=== PATIENT | male | born 2000 | race Caucasian/White ===

== ENCOUNTER 2018-04-14 13:26 | Emergency (ER) | payer BC ==
[~2018-04-14] VITALS: Ht 610.5 cm; Wt 70.5 kg
[2018-04-14 14:07] LABS: BASOPHILS % (AUTO) 0.5 % (0-1); EOSINOPHILS # (AUTO) 0.1 X10'3 (0-0.9); EOSINOPHILS % (AUTO) 2.4 % (0-6); HEMATOCRIT 38.9 % (42.0-52.0); HEMOGLOBIN 13.3 g/dl (14.0-17.9); LYMPHOCYTES # (AUTO) 2.5 X10'3 (1.1-4.8); LYMPHOCYTES % (AUTO) 40.7 % (21-51); MEAN CORPUSCULAR HEMOGLOBIN 31.2 PG (27.0-31.0); MEAN CORPUSCULAR HGB CONC 34.3 % (33.0-36.5); MEAN CORPUSCULAR VOLUME 91.2 FL (78-98); MONOCYTES # (AUTO) 0.5 X10'3 (0-0.9); MONOCYTES % (AUTO) 7.6 % (2-12); NEUTROPHILS % (AUTO) 48.8 % (42-75); PLATELET COUNT 172 X10'3 (140-440); RED BLOOD COUNT 4.27 X10'6 (4.70-6.10); RED CELL DISTRIBUTION WIDTH 12.9 % (11.5-14.5); WHITE BLOOD COUNT 6.1 X10'3 (4.5-11.0)
[2018-04-14 14:29] LABS: CLARITY,URINE CLEAR (Clear); COLOR,URINE YELLOW (Yellow); GLUCOSE, URINE NEGATIVE (Neg); KETONES,URINE NEGATIVE (Neg); LEUKOCYTE ESTERASE ,URINE NEGATIVE (Neg); NITRITES, URINE NEGATIVE (Neg); OCCULT BLOOD,URINE NEGATIVE (Neg); PROTEIN,URINE NEGATIVE (Neg); UROBILINOGEN,URINE 0.2 E.U/dL (0.2-1.0)
[2018-04-14 14:33] LABS: ETHANOL < 0.010 GM/DL (0.0-0.010)
[2018-04-14 14:35] LABS: UA COLLECTION TYPE CLN CATCH MIDSTREAM
[2018-04-14 14:40] LABS: URINE AMPHETAMINE SCREEN NEGATIVE (Neg); URINE BARBITUATE SCREEN NEGATIVE (Neg); URINE BENZODIAZEPINES SCREEN NEGATIVE (Neg); URINE CANNABINOID SCREEN NEGATIVE (Neg); URINE COCAINE SCREEN NEGATIVE (Neg); URINE METHADONE SCREEN NEGATIVE (Neg); URINE OPIATE SCREEN POSITIVE (Neg); URINE PHENCYCLIDINE SCREEN NEGATIVE (Neg)
[2018-04-14 15:44] LABS: ALANINE AMINOTRANSFERASE 35 U/L (12-78); ALBUMIN 4.4 G/DL (3.4-5.0); ALBUMIN/GLOBULIN RATIO 1.3 (1.1-1.5); ALKALINE PHOSPHATASE 68 IU/L (20-180); ANION GAP 11 (8-16); ASPARTATE AMINO TRANSFERASE 18 U/L (10-37); BILIRUBIN,TOTAL 1.5 MG/DL (0.1-1.0); BLOOD UREA NITROGEN 12 MG/DL (7-18); BUN/CREATININE RATIO 12.4 (5.4-32.0); CALCIUM 8.9 MG/DL (8.5-10.1); CHLORIDE 103 MMOL/L (99-107); CREATININE 0.97 MG/DL (0.60-1.10); GLUCOSE 95 MG/DL (70-104); POTASSIUM 3.6 MMOL/L (3.5-5.1); SODIUM 143 MMOL/L (135-145); TOTAL CARBON DIOXIDE 29.3 MMOL/L (24-32); TOTAL PROTEIN 7.9 G/DL (6.4-8.2); eGFR > 90 ML/MIN
[2018-04-14] MEDS ORDERED: LORazepam 1 MG tablet PO STA (20:10)
[2018-04-14 20:32] VITALS: BP 103/69
[2018-04-14] MEDS ORDERED: NO HOME MEDS (23:38)
[2018-04-14] MEDS ORDERED: RISP1TAB13 PO (23:53)
[2018-04-14] MEDS ORDERED: HYDR50CA PO (23:53)
== END 2018-04-14 20:36 ==
LOC: ER 13:27
DX: R45.851 Suicidal ideations (principal); F41.9 Anxiety disorder, unspecified; F32.9 Major depressive disorder, single episode, unspecified
CPT/HCPCS: 36415; 80053; 80305; 80320; 81003; 84443; 85025; 99285

== ENCOUNTER 2018-04-14 17:00 | Inpatient (IN) | payer BC ==
[~2018-04-14] VITALS: Ht 182.9 cm; Wt 72.8 kg
[2018-04-14] MEDS ORDERED: acetaminophen 325mg tablet PO PRN (20:40)
[2018-04-14] MEDS: risperiDONE 2mg tablet PO SCH (22:27)
[2018-04-14] MEDS: hydrOXYzine 25 MG tablet PO PRN (22:27)
[2018-04-14 22:32] VITALS: BP 128/83
[2018-04-14] MEDS ORDERED: NO HOME MEDS (23:38)
[2018-04-14] MEDS ORDERED: HYDR50CA PO (23:53)
[2018-04-14] MEDS ORDERED: RISP1TAB13 PO (23:53)
[2018-04-15 07:54] LABS: CHOL/HDL RATIO 2.4 (0.00-4.99); CHOLESTEROL 145 MG/DL (0-200); HDL CHOLESTEROL 61 MG/DL (35-60); LDL CHOLESTEROL 83 MG/DL (50-100); TRIGLYCERIDES 39 MG/DL (20-135)
[2018-04-15 07:56] LABS: HEMOGLOBIN A1C 5.2 % (4.5-6.2)
[2018-04-15 07:58] VITALS: BP 103/69
[2018-04-15 20:47] VITALS: BP 111/64
[2018-04-15] MEDS: risperiDONE 2mg tablet PO SCH (21:16)
[2018-04-16 08:28] VITALS: BP 108/66
[2018-04-16 20:00] VITALS: BP 106/73
[2018-04-16] MEDS: risperiDONE 2mg tablet PO SCH (21:14)
[2018-04-17 08:00] VITALS: BP 113/68
[2018-04-17] MEDS ORDERED: risperiDONE 0.5mg tablet PO SCH (08:00)
[2018-04-17 19:00] VITALS: BP 104/58
[2018-04-17] MEDS: risperiDONE 0.5mg tablet PO SCH (20:44)
[2018-04-18 08:00] VITALS: BP 95/56
[2018-04-18 19:00] VITALS: BP 102/61
[2018-04-18] MEDS: risperiDONE 0.5mg tablet PO SCH (21:36)
[2018-04-19 08:00] VITALS: BP 95/53
[2018-04-19 19:50] VITALS: BP 105/59
[2018-04-19] MEDS: risperiDONE 0.5mg tablet PO SCH (20:20)
[2018-04-19] MEDS: hydrOXYzine 25 MG tablet PO PRN (20:21)
[2018-04-20 11:11] LABS: HIV ANTIBODY 1&2 RAPID NON-REACTIVE (Neg)
[2018-04-20 20:00] VITALS: BP 109/72
[2018-04-20] MEDS: risperiDONE 0.5mg tablet PO SCH (21:21)
[2018-04-21 08:00] VITALS: BP 106/61
[2018-04-21 09:18] LABS: VITAMIN D, 25-HYDROXY 42.6 ng/mL (30.0-100.0)
[2018-04-21 20:00] VITALS: BP 109/63
[2018-04-21] MEDS: risperiDONE 0.5mg tablet PO SCH (21:26)
[2018-04-22 08:00] VITALS: BP 100/62
[2018-04-22] MEDS ORDERED: HYDR-3686 PO (17:02)
[2018-04-22] MEDS ORDERED: RISP0.5T3 PO (17:02)
[2018-04-22] MEDS: hydrOXYzine 25 MG tablet PO PRN (20:06)
[2018-04-22] MEDS: risperiDONE 0.5mg tablet PO SCH (20:06)
[2018-04-22 20:58] VITALS: BP 104/56
[2018-04-22 20:59] VITALS: BP 110/65
== END 2018-04-22 20:15 | disposition home or self-care (01) | DRG 885 ==
LOC: ADULT MH 17:00
PROVIDERS: ADMIT Psychiatry & Neurology Psychiatry; ATTEND Psychiatry & Neurology Psychiatry
DX: F29 Unspecified psychosis not due to a substance or known physiological condition (principal); T14.91XA Suicide attempt, initial encounter; F41.9 Anxiety disorder, unspecified; F02.80 Dementia in other diseases classified elsewhere, unspecified severity, without behavioral disturbance, psychotic disturbance, mood disturbance, and anxiety; Z82.0 Family history of epilepsy and other diseases of the nervous system; Z81.8 Family history of other mental and behavioral disorders
CPT/HCPCS: 36415; 80061; 82306; 82607; 82746; 83036; 83921; 86592; 86618; 86703; 87070; 99285; Q0177

== ENCOUNTER 2019-03-18 11:46 | Emergency (ER) | payer BC ==
[~2019-03-18] VITALS: Ht 180.3 cm; Wt 65.0 kg
[~2019-03-18 11:46] MED LIST: HYDR-3686 PO; RISP0.5T3 PO
[2019-03-18 13:26] LABS: BASOPHILS # (AUTO) 0.1 X10'3 (0-0.2); BASOPHILS % (AUTO) 0.7 % (0-1); EOSINOPHILS % (AUTO) 0.5 % (0-6); HEMATOCRIT 44.9 % (42.0-52.0); HEMOGLOBIN 15.7 g/dl (14.0-17.9); LYMPHOCYTES # (AUTO) 1.5 X10'3 (1.1-4.8); LYMPHOCYTES % (AUTO) 19.9 % (21-51); MEAN CORPUSCULAR HEMOGLOBIN 30.3 PG (27.0-31.0); MEAN CORPUSCULAR HGB CONC 34.9 g/dL (33.0-36.5); MEAN CORPUSCULAR VOLUME 86.8 FL (78-98); MEAN PLATELET VOLUME 8.6 FL (7.4-10.4); MONOCYTES # (AUTO) 0.5 X10'3 (0-0.9); MONOCYTES % (AUTO) 6.4 % (2-12); NEUTROPHILS # (AUTO) 5.5 X10'3 (1.8-7.7); NEUTROPHILS % (AUTO) 72.5 % (42-75); PLATELET COUNT 231 X10'3 (140-440); RED BLOOD COUNT 5.17 X10'6 (4.70-6.10); RED CELL DISTRIBUTION WIDTH 13.5 % (11.5-14.5); WHITE BLOOD COUNT 7.5 X10'3 (4.5-11.0)
[2019-03-18 13:40] LABS: ALANINE AMINOTRANSFERASE 18 U/L (12-78); ALBUMIN 4.5 G/DL (3.4-5.0); ALBUMIN/GLOBULIN RATIO 1.3 (1.1-1.5); ALKALINE PHOSPHATASE 98 IU/L (46-116); ANION GAP 7 (8-16); ASPARTATE AMINO TRANSFERASE 14 U/L (10-37); BILIRUBIN,TOTAL 2.5 MG/DL (0.1-1.0); BLOOD UREA NITROGEN 10 MG/DL (7-18); BUN/CREATININE RATIO 8.8 (5.4-32.0); CALCIUM 9.1 MG/DL (8.5-10.1); CHLORIDE 105 MMOL/L (99-107); CREATININE 1.14 MG/DL (0.60-1.10); GLUCOSE 94 MG/DL (70-104); POTASSIUM 3.9 MMOL/L (3.5-5.1); SODIUM 141 MMOL/L (135-145); TOTAL CARBON DIOXIDE 28.8 MMOL/L (24-32); eGFR 81 ML/MIN
[2019-03-18 13:51] LABS: ETHANOL < 0.010 GM/DL (0.0-0.010)
[2019-03-18 13:59] LABS: CLARITY,URINE CLEAR (Clear); COLOR,URINE YELLOW (Yellow); GLUCOSE, URINE NEGATIVE (Neg); KETONES,URINE NEGATIVE (Neg); LEUKOCYTE ESTERASE ,URINE NEGATIVE (Neg); NITRITES, URINE NEGATIVE (Neg); OCCULT BLOOD,URINE NEGATIVE (Neg); PROTEIN,URINE 30 mg/dl (Neg)
[2019-03-18 14:02] LABS: URINE AMPHETAMINE SCREEN NEGATIVE (Neg); URINE BARBITUATE SCREEN NEGATIVE (Neg); URINE BENZODIAZEPINES SCREEN NEGATIVE (Neg); URINE CANNABINOID SCREEN NEGATIVE (Neg); URINE COCAINE SCREEN NEGATIVE (Neg); URINE METHADONE SCREEN NEGATIVE (Neg); URINE OPIATE SCREEN NEGATIVE (Neg); URINE PHENCYCLIDINE SCREEN NEGATIVE (Neg)
[2019-03-18 14:06] LABS: UA COLLECTION TYPE CLN CATCH MIDSTREAM
[2019-03-18 14:25] LABS: MUCUS STRANDS MANY /LPF (Neg)
[2019-03-18 14:27] LABS: BACTERIA,URINE FEW /HPF (Neg); RBC,URINE NONE SEEN /HPF (0-2); SQUAMOUS EPITHELIAL CELL,UR NONE SEEN /LPF (FEW); WBC,URINE 0-4 /HPF (0-4)
[2019-03-18 14:32] LABS: URIC ACID CRYSTALS FEW /HPF (NEGATIVE)
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
[2019-03-18 15:48] VITALS: BP 130/80
== END 2019-03-18 15:50 | disposition home or self-care (01) ==
LOC: ER 11:46
DX: F99 Mental disorder, not otherwise specified (principal); F60.2 Antisocial personality disorder; Z79.899 Other long term (current) drug therapy
CPT/HCPCS: 36415; 80053; 80305; 80320; 81001; 84443; 85025; 99283; 99284

== ENCOUNTER 2021-10-21 00:35 | Emergency (ER) | payer BC, MEDICAID ==
[~2021-10-21] VITALS: Ht 182.9 cm; Wt 113.6 kg
[~2021-10-21 00:35] MED LIST changes: -RISP0.5T3 PO; +RISP0.5T65 PO
[2021-10-21] MEDS ORDERED: LORazepam 1 MG tablet PO ONE (02:05)
[2021-10-21] MEDS ORDERED: LORazepam 1 MG tablet PO STA (02:15)
[2021-10-21] MEDS ORDERED: OLANZAPINE 5 MG TABLET PO STA (02:15)
[2021-10-21 02:16] LABS: BASOPHILS % (AUTO) 0.3 % (0-1); EOSINOPHILS # (AUTO) 0.1 X10'3 (0-0.9); EOSINOPHILS % (AUTO) 0.5 % (0-6); HEMATOCRIT 45.8 % (42.0-52.0); HEMOGLOBIN 15.8 g/dl (14.0-17.9); LYMPHOCYTES # (AUTO) 2.3 X10'3 (1.1-4.8); LYMPHOCYTES % (AUTO) 12.4 % (21-51); MEAN CORPUSCULAR HEMOGLOBIN 29.7 PG (27.0-31.0); MEAN CORPUSCULAR HGB CONC 34.6 g/dL (33.0-36.5); MEAN CORPUSCULAR VOLUME 85.9 FL (78-98); MEAN PLATELET VOLUME 8.7 FL (7.4-10.4); MONOCYTES # (AUTO) 1.2 X10'3 (0-0.9); MONOCYTES % (AUTO) 6.8 % (2-12); NEUTROPHILS # (AUTO) 14.7 X10'3 (1.8-7.7); PLATELET COUNT 279 X10'3 (140-440); RED BLOOD COUNT 5.33 X10'6 (4.70-6.10); RED CELL DISTRIBUTION WIDTH 12.9 % (11.5-14.5); WHITE BLOOD COUNT 18.4 X10'3 (4.5-11.0)
[2021-10-21 02:16] LABS: URINE AMPHETAMINE SCREEN NEGATIVE (Neg); URINE BARBITUATE SCREEN NEGATIVE (Neg); URINE BENZODIAZEPINES SCREEN NEGATIVE (Neg); URINE CANNABINOID SCREEN NEGATIVE (Neg); URINE COCAINE SCREEN NEGATIVE (Neg); URINE METHADONE SCREEN NEGATIVE (Neg); URINE OPIATE SCREEN NEGATIVE (Neg); URINE PHENCYCLIDINE SCREEN NEGATIVE (Neg)
[2021-10-21 02:17] LABS: ALANINE AMINOTRANSFERASE 28 U/L (12-78); ALBUMIN 4.5 G/DL (3.4-5.0); ALBUMIN/GLOBULIN RATIO 1.1 (1.1-1.5); ALKALINE PHOSPHATASE 88 IU/L (46-116); ANION GAP 7 (8-16); ASPARTATE AMINO TRANSFERASE 23 U/L (10-37); BILIRUBIN,TOTAL 0.6 MG/DL (0.1-1.0); BLOOD UREA NITROGEN 11 MG/DL (7-18); BUN/CREATININE RATIO 10.3 (5.4-32.0); CALCIUM 9.1 MG/DL (8.5-10.1); CHLORIDE 104 MMOL/L (99-107); CREATININE 1.07 MG/DL (0.60-1.10); ETHANOL < 0.010 GM/DL (0.0-0.010); GLUCOSE 106 MG/DL (70-104); POTASSIUM 4.1 MMOL/L (3.5-5.1); SODIUM 140 MMOL/L (135-145); TOTAL CARBON DIOXIDE 28.8 MMOL/L (24-32); TOTAL PROTEIN 8.5 G/DL (6.4-8.2); eGFR 86 ML/MIN
[2021-10-21] MEDS ORDERED: LORA-269 PO (02:46)
[2021-10-21] MEDS ORDERED: FLUO-1 PO (02:46)
[2021-10-21] MEDS ORDERED: ZOLP10TA PO (02:46)
[2021-10-21] MEDS ORDERED: TETanus/Pertussis (Acell)/Diphther VAC/PF (Tdap-Adult) 0.5ml syringe IMVAC ONE (03:20)
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
--- NOTE | 2021-10-21 05:45 | NUR ---
tetanus shot given in R deltoid . Patient currently sleeping
--- NOTE | 2021-10-21 07:03 | NUR ---
Received pt sleeping in bed. No s/s of distress noted.
--- NOTE | 2021-10-21 07:30 | NUR ---
pt packet faxed to [facility]
[2021-10-21] MEDS ORDERED: OLANZapine 2.5MG tablet PO SCH (08:00)
--- NOTE | 2021-10-21 09:14 | NUR ---
Patient sleeping in bed. He is hard to arouse for morning medications, but he did take Zyprexa as ordered.
--- NOTE | 2021-10-21 11:53 | NUR ---
Patient continues to sleep. He did not eat breakfast, and was very hard to arouse when [facility] attempted to evaluate patient. Patient's family will come this afternoon and speak with [facility] at that time.
--- NOTE | 2021-10-21 13:50 | NUR ---
Family at bedside. Silvino from [facility] here to evaluate patient.
[2021-10-21 15:01] VITALS: BP 142/68
== END 2021-10-21 15:05 | disposition home or self-care (01) ==
LOC: ER 00:36
DX: S90.812A Abrasion, left foot, initial encounter (principal); S90.414A Abrasion, right lesser toe(s), initial encounter; S80.211A Abrasion, right knee, initial encounter; Z20.822 Contact with and (suspected) exposure to COVID-19; F79 Unspecified intellectual disabilities; Z79.899 Other long term (current) drug therapy; X58.XXXA Exposure to other specified factors, initial encounter; Y93.89 Activity, other specified; Y92.89 Other specified places as the place of occurrence of the external cause; Y99.8 Other external cause status
CPT/HCPCS: 36415; 73130; 80053; 80305; 80320; 84443; 85025; 87635; 90471; 90715; 99285; C9803